=== PATIENT | male | born 1970 | race Caucasian/White ===

== ENCOUNTER 2023-09-29 17:06 | Inpatient (IN) | payer OTHER ==
[2023-09-29] VITALS (9 sets, daily range): BP systolic 82–101; BP diastolic 57–75
[~2023-09-29] VITALS: Ht 182.9 cm; Wt 77.7 kg
[~2023-09-29 17:06] MED LIST: AMLODIPINE BESY10 MG PO; BAYER BACK & B1 EACH; CLONAZEPAM1 MG PO; CLONAZEPAM2 MG; COMBIVENT RESPIM4 GM INH; DIPHENHYDRAMINE25 MG; LISINOPRIL40 MG PO; MULTI VITAMIN1 EACH PO; TAMSULOSIN HCL0.4 MG PO; TOPROL XL50 MG PO
[2023-09-29 17:39] LABS: BASOPHILS 2.1 % (0-2); EOSINOPHILS 0.3 % (0-6); HEMATOCRIT 37.3 % (35.0-50.0); LYMPHOCYTES 25.5 % (24-44); MCH 36.7 (27-36); MCHC 34.7 g/dl (30-36); MCV 105.8 fl (81-99); MONOCYTES 7.3 % (0-12); NEUTROPHILS 64.8 % (39-80); PLATELET COUNT 164 K/uL (140-440); RBC 3.52 M/ul (4.3-5.7); RDW 13.3 (10.5-15.0)
[2023-09-29] MEDS ORDERED: SODIUM CHLORIDE 0.9% 1,000 ML IV PRN (17:45)
[2023-09-29 17:50] LABS: ALBUMIN 3.1 g/dL (3.4-5.0); ALBUMIN/GLOBULIN RATIO 1.07 (1.1-2.4); ANION GAP 18.6 (7-21); BILIRUBIN, TOTAL 1.9 ng/dL (0.2-1.0); BUN/CREATININE RATIO 7.69 (6.0-28.6); CALCIUM 6.8 mg/dL (8.5-10.1); CREATININE, SERUM 1.82 mg/dL (0.70-1.30); POTASSIUM 2.6 mmol/L (3.5-5.1)
[2023-09-29] MEDS ORDERED: POTASSIUM CHLORIDE 10 MEQ/100 ML BAG IV SCH (18:15)
[2023-09-29] MEDS ORDERED: SODIUM CHLORIDE 0.9% 500 ML IV PRN (18:15)
[2023-09-29 18:32] LABS: BILIRUBIN, URINE POSITIVE (negative); BLOOD/HGB, URINE NEGATIVE (Negative); KETONE, URINE TRACE (Negative); LEUK ESTERASE, URINE NEGATIVE (negative); NITRITE, URINE NEGATIVE (negative)
[2023-09-29 18:47] LABS: AMPHETAMINES, URINE NEGATIVE (NEGATIVE); BARBITURATES, URINE NEGATIVE (NEGATIVE); BENZODIAZEPINE, URINE POSITIVE (NEGATIVE); BUPRENORPHINE, URINE NEGATIVE (NEGATIVE); CANNABINOID, URINE NEGATIVE (NEGATIVE); COCAINE, URINE POSITIVE (NEGATIVE); ECSTASY, URINE NEGATIVE (NEGATIVE); FENTANYL, URINE NEGATIVE (NEGATIVE); METHADONE, URINE NEGATIVE (NEGATIVE); OPIATES, URINE NEGATIVE (NEGATIVE); OXYCODONE, URINE NEGATIVE (NEGATIVE); PHENCYCLIDINE, URINE NEGATIVE (NEGATIVE)
[2023-09-29] MEDS ORDERED: ACETAMINOPHEN 325 MG TAB PO PRN (21:00)
[2023-09-29] MEDS ORDERED: CIPROFLOXACIN/D5W 400 MG IV SCH (21:00)
[2023-09-29] MEDS ORDERED: LORazepam 2 MG/ML VIAL IV PRN (21:00)
[2023-09-29] MEDS ORDERED: LACTATED RINGER'S 1,000 ML IV SCH ×2 (21:00)
[2023-09-29] MEDS ORDERED: ondansetron HCL 4 MG/2 ML VIAL IV PRN (21:00)
--- NOTE | 2023-09-29 21:00 | NUR ---
PATIENT ARRIVED TO THE UNIT VIA STRETCHER. PATIENT ABLE TO TRANSFER WITH SBA TO THE BED. PATIENT IS ALERT BUT TIRED. PATIENT VS STABLE. TOLERATING 2L NC. ORIENTED X4. IN TO SEE PATIENT. NEW ORDERS RECEIVED TO START BANANA BAG TONIGHT AND ABX ADDED. PATIENT IS APPROPRIATE AND FOLLOWS INSTRUCTION. RIGHT HAND HAS WOUND FROM "CAT BITE" ABOUT 3 WEEKS AGO ACCORDING TO THE PATIENT. PICTURES TAKEN FOR THE CHART AND DRESSED WITH XEROFORM AND KERLEX. AREA IS RED AND PAINFUL. BLADDER SCAN DONE DUE TO NOT VOIDING FOR UNKNOWN AMOUNT OF TIME. BLADDER SCAN FOR 300 MLS. PATIENT DENIED NEED TO VOID AT THIS TIME.
[2023-09-29] MEDS ORDERED: THIAMINE HCL 200 MG/2 ML VIAL ONE (21:14)
[2023-09-29] MEDS ORDERED: MULTIVITAMINS 10 ML,FOLIC ACID 1 MG,THIAMINE HCL 100 MG in SODIUM CHLORIDE 0.9% 1,000 ML IV SCH (21:15)
--- NOTE | 2023-09-29 21:36 | NUR ---
CRITICAL LAB VALUE CALLED TO . ORDERS RECEIVED FOR MAG REPLACEMENT, SEE EMAR. LAB RECHECK 1 HOUR AFTER INFUSION FINISHES.
[2023-09-29] MEDS ORDERED: MAGNESIUM SULFATE 4 GM/100 ML BAG IV ONE (21:45)
--- NOTE | 2023-09-29 22:00 | NUR ---
PATIENT PROVIDED PRN ATIVAN PER [facility] PROTOCOL. MOST NATABLE SYMPTOMS BEING TREMORS AND ANXIETY.
[2023-09-29 22:20] LABS: PH, VENOUS 7.502 (7.31-7.41)
[2023-09-30] VITALS (21 sets, daily range): BP systolic 88–153; BP diastolic 64–105
--- NOTE | 2023-09-30 00:15 | NUR ---
PATIENT APPEARS TO BE SLEEPING SOUNDLY. VS STABLE. IV FLUIDS PER ORDER, SITES WNL. CALL LIGHT IN REACH. BED ALARM ACTIVE.
--- NOTE | 2023-09-30 01:30 | NUR ---
PATIENT PROVIDED FRESH ICE WATER. ORIENTED AND FOLLOWS INSTRUCTIONS. DENIES NEED TO VOID. CALL LIGHT IN REACH.
--- NOTE | 2023-09-30 03:00 | NUR ---
PATIENT APPEARS COMFORTABLE RESTING IN BED. IV SITE WNL, IFV PER ORDER. VS STABLE. PATIENT TOLERATING 2L NC. CALL LIGHT IN REACH.
--- NOTE | 2023-09-30 04:54 | NUR ---
PATIENT UP TO THE EDGE OF THE BED. PATIENT MOVES SLOW AND HAS TREMORS BUT IS ABLE TO STAND AND USE URNAL WITH MINIMAL ASSIST. PATIENT VOIDED 200 MLS AJ COLORED URINE. PATIENT RETURNED TO BED. SNACKS AND WATER PROVIDED PER REQUEST. PRN ATIVAN PER CIWA PROTOCOL. PATIENT DENIED PAIN OR SOB. NOTED 85% ON RA, PLACED BACK ON 2L NC. TITRATED TO 4L AFTER ACTIVITY. LUNG SOUNDS ARE COARSE WITH FINE CRACKLES NOTED ON RLL. ENCOURAGED COUGH AND DEEP BREATHING FOR THE PATIENT. TITRATED BACK TO 2L AFTER SEVERAL MINS. PATIENT IS ALERT AND FOLLOWS INSTRUCTIONS BUT IS SLOW TO RESPOND. CALL LIGHT IN REACH. BED ALARM ON.
[2023-09-30 05:20] LABS: BASOPHILS 1.3 % (0-2); EOSINOPHILS 1.1 % (0-6); HEMOGLOBIN 12.3 g/dL (12.0-18.0); MCH 37.1 (27-36); MCHC 35.1 g/dl (30-36); MCV 105.7 fl (81-99); NEUTROPHILS 61.6 % (39-80); PLATELET COUNT 137 K/uL (140-440); RBC 3.31 M/ul (4.3-5.7); RDW 12.8 (10.5-15.0)
[2023-09-30 05:34] LABS: ALBUMIN 2.7 g/dL (3.4-5.0); ALBUMIN/GLOBULIN RATIO 0.93 (1.1-2.4); ANION GAP 17.9 (7-21); BUN/CREATININE RATIO 10.3 (6.0-28.6); CREATININE, SERUM 0.97 mg/dL (0.70-1.30); MAGNESIUM 1.4 mg/dL (1.8-2.4); POTASSIUM 2.9 mmol/L (3.5-5.1); PROTEIN, TOTAL 5.6 g/dL (6.4-8.2)
[2023-09-30 05:35] LABS: CALCIUM 6.2 mg/dL (8.5-10.1)
--- NOTE | 2023-09-30 05:57 | NUR ---
NOTED PATIENT GLUCOSE 70 ON LABS. PATIENT RECEIVED SNACK AND JUICE.
--- NOTE | 2023-09-30 06:34 | NUR ---
UPDATED PROVIDED TO SEE EMAR FOR NEW ORDERS.
[2023-09-30] MEDS ORDERED: MAGNESIUM SULFATE 3 GM in SODIUM CHLORIDE 0.9% 100 ML IV ONE (06:45)
[2023-09-30] MEDS ORDERED: LACTATED RINGER'S 1,000 ML IV ONE (06:45)
[2023-09-30] MEDS ORDERED: POTASSIUM CHLORIDE 40 MEQ,LIDOCAINE HCL 1% 40 MG in DEXTROSE 5% 500 ML IV ONE (06:45)
[2023-09-30] MEDS ORDERED: CALCIUM GLUCONATE 2,000 MG in DEXTROSE 5% 100 ML IV ONE ×2 (06:45→17:15)
[2023-09-30] MEDS ORDERED: POTASSIUM CHLORIDE 10 MEQ TABCR PO ONE ×3 (08:00→23:00)
--- NOTE | 2023-09-30 08:19 | NUR ---
UR CLINICAL REVIEW: [facility] [place] JULIOCO OBS 09/29/23 @ 2000 MEETS YES PLAN DC TO HOME WHEN STABLE. 09/30/23 OBSERVATION CARE ADMISSION CRITERIA FOR DEHYDRATION: VITAL SIGN ABNORMALITY- BLOOD PRESSURES 76-89/47-64, BP MEAN 59-73. ELECTROLYTE IMBALANCES- POTASSIUM 2.5 AND MAGNESIUM 0.8 INABILITY TO MAINTAIN ORAL HYDRATION- INTOXTICATED ON ADMISSION, ELEVATED LACTIC ACIDS
--- NOTE | 2023-09-30 08:55 | NUR ---
PATIENT ASSESSMENT COMPLETED. PATIENT HAS BEEN RESTING AT THIS TIME. PATIENT SHAKY PER BASELINE PER PATIENT. WILL MONITOR FOR INCREASED CIWA. PATIENT BREAKFAST PROVIDED AND PATIENT ABLE TO FEED HIMSELF AT THIS TIME.
[2023-09-30] MEDS ORDERED: MULTIVITAMINS 10 ML,FOLIC ACID 1 MG,THIAMINE HCL 100 MG in SODIUM CHLORIDE 0.9% 1,000 ML IV SCH (09:00)
[2023-09-30] MEDS ORDERED: PANTOPRAZOLE SODIUM 40 MG TABEC PO SCH (09:00)
--- NOTE | 2023-09-30 09:12 | NUR ---
MD PENDLETON AT BEDSIDE AND UPDATED THAT PATIENT DENIES BEER WITH MEALS. PATIENT STATES "I DONT LIKE BEER". PATIENT STATES "BEAU USED LIBRIUM TO HELP WITH WITHDRAWLS IN THE PAST AND THEN GO STRAIGHT BACK TO DRINKING". PATIENT DENIES WANTING TO STOP DRINKING OR SMOKING. SEE NEW ORDERS PER MD PENDLETON.
[2023-09-30] MEDS ORDERED: chlordiazePOXIDE HCl 5 MG CAPSULE PO SCH ×2 (09:23→15:00)
[2023-09-30] MEDS ORDERED: TAMSULOSIN HCL 0.4 MG CAP PO SCH (09:24)
--- NOTE | 2023-09-30 09:35 | NUR ---
PATIENT ALERT AND ORIENTED IN BED. DEMOGRAPHICS VERIFIED WITH PATIENT. STATES HE LIVES IN A HOUSE WITH STAIRS, NO DIFFICULTY NAVIGATING STAIRS. STATES HE HAS NO DME. PATIENT CONTINUES TO DRIVE. HE RECEIVES FOOD STAMPS. STATES HE IS CURRENTLY UNEMPLOYED AND PAYING FOR UTILITES, FOOD AND MEDICATIONS IS BECOMING MORE DIFFICULT. PAMPHELET WITH INFORMATION REGARDING [employer], FOOD PANTRIES GIVEN. PATIENT STATES HE HAS TRIED TO STOP DRINKING MULTIPLE TIMES IN THE BUT WAS UNSUCCESSFUL. OFFERED TO CALL [facility] TO GET HIM SET UP WITH SUPPORT. STATES THAT WOULD BE OK, BUT HE DOES NOT WANT THEM TO SEE HIM IN THE HOSPITAL. SPOKE WITH JAMAL AT [facility]. PATIENT INFORMATION PROVIDED. STATES SHE WILL ATTEMPT TO CALL HIM THIS EVENING.
--- NOTE | 2023-09-30 09:57 | NUR ---
VISITED DURING SPIRITUAL CARE ROUNDS. PT APPEARED TO BE SLEEPING. DID NOT DISTURB. PROVIDED PRAYER.
--- NOTE | 2023-09-30 11:10 | NUR ---
ATIVAN GIVEN FOR INCREASED CIWA OF 12. PATIENT HAS BEEN UP TO THE BEDSIDE TO VOID MULTIPLE TIMES. PATIENT IS VERY SHAKY WHEN STANDING AND NEEDS 1 PERSON ASSIST FOR BALANCE. PATIENT BED ALARM ON FOR SAFETY. PATIENT HAS NOT BEEN CALLING AND SETS ALARM OFF. REEDUCATED PATIENT TO PLEASE CALL BEFORE GETTING UP.
--- NOTE | 2023-09-30 11:54 | NUR ---
PATIENT AWAKE AND ASSSITED WITH A PUDDING. PATIENT REPORTS ATIVAN SEEMS TO HAVE HELPED A LITTLE. PATIENT AWAITING LUNCH. PATIENT REPORTS FEELING COLD AND IS SHAKY. NO TEMP NOTED AT THIS TIME 98.1 ORAL. TYLENOL GIVEN FOR PAIN 6/10 IN HIS HAND AND GENERALIZED DISCOMFORT. PATIENT DENIES ANY OTHER NEEDS AT THIS TIME. BED ALARM ON FOR PATIENT SAFETY.
[2023-09-30] MEDS ORDERED: PHARMACY RENAL DOSE ADJUSTMENT 1 DOSE MISC PO SCH (12:00)
[2023-09-30] MEDS ORDERED: METOPROLOL SUC100 MG PO (13:01)
[2023-09-30] MEDS ORDERED: METOPROLOL SUCC50 MG PO (13:01)
[2023-09-30] MEDS ORDERED: ZESTRIL40 MG PO (13:02)
[2023-09-30] MEDS ORDERED: FLOMAX0.4 MG PO (13:03)
[2023-09-30] MEDS ORDERED: NORVASC10 MG PO (13:03)
--- NOTE | 2023-09-30 13:04 | NUR ---
MED REC COMPLETE - PT STATES HAS NOT TAKEN MEDS FOR SOME TIME, BUT SHOULD BE.
--- NOTE | 2023-09-30 13:10 | NUR ---
PATIENT UP AT THE BEDSIDE TO VOID WITH RN ASSSIT AFTER PATIENT SET OFF BED ALARM. PATIENT HAS INCREASED SHAKING AND INSTABILITY WITH SHAKING. PRN DOSE OF ATIVAN GIVEN. BED ALARM BACK ON AND PATIENT EATING DINNER AT THIS TIME
--- NOTE | 2023-09-30 14:30 | NUR ---
STAFF IN TO ASSIST PATIENT AND PRN ATIVAN WAS GIVEN FOR INCREASED CIWA.
--- NOTE | 2023-09-30 15:00 | NUR ---
UPDATED MD OF CONTINUED INCREASED CIWAS AND ATIVAN ADMINISTRATION. PER MD PERFECTO STEWART AND MONITOR FOR CHANGES. PATIENT REPORTS SEEING A CAT IN HIS ROOM AND STATES "I KNOW ITS NOT HERE THOUGH".
--- NOTE | 2023-09-30 15:11 | NUR ---
bisque kiln drawer was able to assist pt with using his urinal laying down in the bed. bisque kiln drawer held urinal and assisted pt with putting his penis into the urinal. output charted
[2023-09-30 15:18] LABS: ANION GAP 14.4 (7-21); BUN/CREATININE RATIO 5.43 (6.0-28.6); CALCIUM 6.8 mg/dL (8.5-10.1); CREATININE, SERUM 0.92 mg/dL (0.70-1.30); POTASSIUM 3.4 mmol/L (3.5-5.1)
--- NOTE | 2023-09-30 15:51 | NUR ---
PATIENT TRYING TO SIT UP IN BED. THIS RN IN TO CHECK ON PATIENT. PATIENT USED URINAL IN BED WITH NO ISSUES. PATIENT NOW LAYING BACK RESTING IN BED. BED ALARM ON. FALL MATS IN PLACE.
--- NOTE | 2023-09-30 16:30 | NUR ---
THIS RN IN TO ASSSIT PATIENT WITH URINAL. PATIENT TOLERATED WELL. BED ALARM ON FOR PATIENT SAFETY.
[2023-09-30] MEDS ORDERED: MAGNESIUM SULFATE 4 GM/100 ML BAG IV ONE ×2 (17:15→23:00)
--- NOTE | 2023-09-30 18:46 | NUR ---
PATIENT SITTING UP IN BED FOR DINNER. MD HERE TO CHECK ON PATIENT. LABS REVIEWED AND NEW ORDERS PLACED. MD LOOKED AT PATIENTS HAND. CLEANED AND REDRESSED PATIENT HAND WITH A FOAM DRESSING. PATIENT TOELRATED WELL. PATIENT REPORTING CONTINUED WITHDRAWL SYMPTOMS. PATIENT STATES HE IS NOW STARTING TO HEAR/SEE THINGS. PATIENT ALERT TO SELF AND EASILY REORIENTABLE. PATIENT IS LESS ANXIOUS, AGITATED, AND SHAKY THAN EARLIER IN SHIFT. PATIENT UPDATED ON PLAN OF CARE. PATIENT BED ALARM ON. PATIENT USED HIS CALL LIGHT FOR THE FIRST TIME THIS EVENING TO ASK FOR ASSISTANCE.
[2023-09-30] MEDS ORDERED: diphenhydrAMINE HCL 50 MG/ML VIAL IV PRN (19:30)
--- NOTE | 2023-09-30 19:40 | NUR ---
PATIENT RESTING IN BED, ALERT AND ORIENTED, HE REPORTS NO PAIN, HE SAID "I JUST FEEL LIKE CRAP" PATIENT HAS MAG RIDER AND CA RIDER INFUSIONG AT THIS TIME. HE HAS NO TREMORS NOTED AT REST, HE IS NOT SWEATING OR REPORTING ANY HALLUCINATIONS AT THIS TIME. CIWA 4
--- NOTE | 2023-09-30 21:07 | NUR ---
AT NURSES STATION AFTER ROUNDING ON PATIENT, GAVE ORDERS TO PLACE REPEAT LABS AT 2200 FOR REVIEW AFTER ELECTROLYTE REPLACEMENT AND ALSO AM LABS.
--- NOTE | 2023-09-30 22:17 | NUR ---
LAB INTO DRAW LABS NOW
--- NOTE | 2023-09-30 22:23 | NUR ---
PATIENT ADMINISTERED 25MG IV BENEDRYL FOR TREMORS PER VERBAL ORDER AT NURSES STATION.
[2023-09-30 22:38] LABS: ANION GAP 11.3 (7-21); BUN/CREATININE RATIO 5.37 (6.0-28.6); CALCIUM 7.2 mg/dL (8.5-10.1); CREATININE, SERUM 0.93 mg/dL (0.70-1.30); MAGNESIUM 1.8 mg/dL (1.8-2.4); POTASSIUM 3.3 mmol/L (3.5-5.1)
--- NOTE | 2023-09-30 22:49 | NUR ---
PATIENT ATTEMPTING TO SIT UP TO SIDE OF BED, THIS RN INTO ROOM WHEN NOTICED HEART RATE INCREASE TO 120, NOT SUSTAINED, PATIENT SAID HE WAS TRYING TO SIT TO SIDE OF BED, HE WAS UNABLE TO WITHOUT ASSISTANCE, TWO RN TO ASSIST PATIENT TO SIT, THEN ONE TO DO HALF STAND WHILE DEPENDS CHANGED AND WHITE CHUCKS ON BED CHANGED. PATIENT BACK TO BED NOTED TO BE MORE TREMULOUS ONCE BACK TO BED, HE REPORTS HE IS DISAPPOINTED WITH HIMSELF, THAT HE CANT DO ANYTHING FOR HIMSELF. DISCUSSED DISEASE PROCESS WITH PATIENT AND SYMPTOMS.
[2023-09-30] MEDS ORDERED: AMLODIPINE BESYLATE 5 MG TAB PO ONE (23:00)
[2023-09-30] MEDS ORDERED: Calcium Gluconate in NS 1,000 MG/50 ML BAG IV ONE (23:00)
--- NOTE | 2023-09-30 23:00 | NUR ---
CALLED WITH 2200 LAB RESULTS AND INCREASE B/P, NEW ORDERS FOR ELECTROLYTE REPLACEMENT AND B/P MEDICATIONS.
[2023-09-30] MEDS ORDERED: MAGNESIUM SULFATE IV ONE (23:15)
--- NOTE | 2023-09-30 23:40 | NUR ---
PATIENT SET OFF BED ALARM, LEGS TO EDGE OF BED, THIS RN INTO PATIENT ROOM, PATIENT SAID "I WANT TO GET UP AND WALK TO THAT WALL OVER THERE" HE IS POINTING TO TV WALL. THIS RN SAID "I DONT THINK THATS A GOOD IDEA FOR TONIGHT, YOU ARE STILL VERY WEAK, YOU HAVE BEEN NEEDING TWO PEOPLE TO ASSIST YOU TO SIT AT THE SIDE OF BED AND SUPPORT YOU TO USE THE URINAL" PATIENT SAID, "THEN WHEN" NOTED TO BE AGITATED WITH THIS, THIS RN SAID, "MAYBE IN THE MORNING IF YOU FEEL LIKE GETTING UP TO RECLINER, WE CAN TRY THAT" HE DID NOT RESPOND. HE JUST SAT BACK IN BED AND NARROWED HIS EYES, LIKE A GLARE, STRAIGHT FORWARD.
--- NOTE | 2023-09-30 23:50 | NUR ---
PATIENT RESTING IN BED, EYES CLOSED, HE WAKES EASILY, NOTED CONTINUED HAND TREMORS WHILE AT REST. ATIVAN 2MG IV PRN
[2023-10-01] VITALS (27 sets, daily range): BP systolic 100–152; BP diastolic 69–112
--- NOTE | 2023-10-01 01:09 | NUR ---
PATIENT SET OFF BED ALARM, RN X2 INTO PATIENT ROOM TO ASSIST TO SIT TO BED, PATIENT HAS BEEN INCONTINENT IN BRIEF DEPENDS, VOIDED IN URINAL THEN CHANGED/CLEANED AND CHANGED WHITE CHUCKS FROM BED. PATIENT THEN ASSISTED BACK TO BED AND BOOSTED UP.
--- NOTE | 2023-10-01 03:08 | NUR ---
PATIENT SET OFF BED ALARM, HE REPORTS HE NEED TO "PEE" THIS RN AND Nathalia GALAVIZ IN ROOM TO ASSIST, PATIENT TO SIT AT SIDE OF BED AND VOID IN URINAL, HE VOIDED 300ML, HE ASSISTED WITH LEGS TO BOOST SELF UP IN BED WITH ASSISTANCE.
--- NOTE | 2023-10-01 03:42 | NUR ---
PATIENT NOTED TO BE TALKING TO SOMEONE IN ROOM IF ON THE TELEPHONE, THIS RN COULD HERE HIME SAY, "I JUST GOT OUT OF THE HOSPITAL YESTURDAY, ARE YOU THERE?, HELLO?" THIS RN INTO PATIENTS ROOM TO ASSESS, HE IS NOTED TO HAVE AUDITORY HALLUCINATIONS, HE REORIENTED EASILY, THEN HE SAID HE NEEDED TO VOID, PATIENT VOIDED 450ML OF URINE IN URINAL WITH ASSISTANCE, HE THEN BEGAN LOOKING FOR "CAP FROM NEOSPORIN" THIS RN SAID, "SIR, YOU ARE IN THE HOSPITAL YOU DONT HAVE ANY NEOSPORIN IN YOUR BED." HE SAID, "OH, THATS RIGHT, DAMN, I AM HALLUCINATING LIKE A MOTHER FUCKER." THIS RN SAID, "YES SIR, I JUST GAVE YOU SOME MORE MEDICINE IN YOUR IV, THE ATIVAN TO HELP WITH THIS." HE SAID, "OK". HE HAS NO FURTHER NEEDS OR CONCERNS AT THIS TIME.
--- NOTE | 2023-10-01 04:45 | NUR ---
PATIENT SET BED ALARM OFF, HE SAID HE HAD TO "PEE", PATIENT ASSISTED TO BEDSIDE WITH URINAL, TWO NURSE ASSIST, PATIENT THEN NOTED TO HAVE HAD INCONTINENCE IN DEPENDS AND IN BED. PATIENT ASSISTED TO RECLINER FOR FULL BED CHANGE, CLEANED PATIENT AND CHANGED DEPENDS. PATIENT SAID MULTIPLE TIMES, "I WANT TO GO OUTSIDE TO HAVE A CIGARETTE." THIS RN RE-ORIENTED PATIENT TO PLACE AND RULES OF NO SMOKING ON HOSPITAL PROPERTY, PATIENT OFFERED NICOTINE REPLACEMENT, PATCH, GUM, LOZENGES. HE DECLINED ALL REPLACEMENT. PATIENT BACK TO BED AFTER BED LINENS CHANGED.
--- NOTE | 2023-10-01 05:11 | NUR ---
LAB DRAW FROM LEFT AC BY THIS RN, WITH COMMISSIONING AGENT IN ROOM. PATIENT TOLERATED WELL.
[2023-10-01 05:46] LABS: ALBUMIN 2.8 g/dL (3.4-5.0); ANION GAP 10.6 (7-21); BILIRUBIN, TOTAL 2.7 ng/dL (0.2-1.0); BUN/CREATININE RATIO 5.19 (6.0-28.6); CALCIUM 7.2 mg/dL (8.5-10.1); CREATININE, SERUM 0.77 mg/dL (0.70-1.30); MAGNESIUM 1.2 mg/dL (1.8-2.4); POTASSIUM 3.6 mmol/L (3.5-5.1); PROTEIN, TOTAL 5.6 g/dL (6.4-8.2)
[2023-10-01 05:53] LABS: BASOPHILS 0.8 % (0-2); EOSINOPHILS 0.7 % (0-6); HEMATOCRIT 34.9 % (35.0-50.0); HEMOGLOBIN 12.4 g/dL (12.0-18.0); LYMPHOCYTES 22.6 % (24-44); MCH 37.4 (27-36); MCHC 35.4 g/dl (30-36); MCV 105.6 fl (81-99); MONOCYTES 5.2 % (0-12); NEUTROPHILS 70.7 % (39-80); PLATELET COUNT 107 K/uL (140-440); RBC 3.31 M/ul (4.3-5.7); RDW 12.9 (10.5-15.0)
--- NOTE | 2023-10-01 06:00 | NUR ---
CALLED TO REPORT AM LABS INCLUDING CRITICAL PHOS LAB 1.0, NEW ORDERS FOR REPLACEMENTS.
--- NOTE | 2023-10-01 06:32 | NUR ---
Lab called with critical value, Phos 1.0, reported to Barbara RED
[2023-10-01] MEDS ORDERED: MAGNESIUM SULFATE 2 GM/50 ML BAG IV ONE (06:45)
[2023-10-01] MEDS ORDERED: POTASSIUM PHOSPHATE 30 MMOL in DEXTROSE 5% 500 ML IV SCH ×2 (06:45→08:00)
--- NOTE | 2023-10-01 07:45 | NUR ---
REPORT RECIEVED FROM CHART COMPUTER RN. PATIENT RESTING IN BED. BED ALARM ON. PER REPORT PATIENT REMAINS WEAK AND FORGETFUL.
--- NOTE | 2023-10-01 07:52 | NUR ---
Patient up to chair for breakfast, after using urinal. Pt voided 300. am care completed, pt has no other requests at this time. Warm blankets given, linens changed. Pt has no other requests at this time, chair alarm on. Call light within reach.
[2023-10-01] MEDS ORDERED: METOPROLOL TARTRATE 5 MG/5 ML VIAL IV ONE (08:45)
[2023-10-01] MEDS ORDERED: METOPROLOL SUCCINATE 50 MG TABCR PO SCH (09:00)
[2023-10-01] MEDS ORDERED: MULTIVITAMINS THERAPEUTIC 1 EA TAB PO SCH (09:00)
[2023-10-01] MEDS ORDERED: AMLODIPINE BESYLATE 10 MG TAB PO SCH (09:00)
[2023-10-01] MEDS ORDERED: THIAMINE HCL 100 MG TAB PO SCH (09:00)
[2023-10-01] MEDS ORDERED: FOLIC ACID 1 MG TAB PO SCH (09:00)
--- NOTE | 2023-10-01 09:00 | NUR ---
PATIENT ASSESSMENT COMPLETED. PATIENT ALERT AND ORIENTED TO SELF AND EVENTS. PATIENT IS FORGETFUL TO SOME EVENTS. PATIENT CIWA IS 6-8. PATIENT REPORTS BEING IN THE HOSPITAL BECAUSE OF HIS HAND AND ALCOHOL WITHDRAWL. PATIENT FOLLOWS COMMANDS WHILE STAFF ARE AT THE BEDSIDE, BUT IS VERY IMPULSE AND CONTINUES TO TRY TO STAND ON HIS OWN. PATIENT DOES NOT CALL USE THE CALL LIGHT FOR HELP. THIS RN AND FACSIMILE MACHINE OPERATOR ASSSITED PATIENT TO CHAIR AND PATIENT ABLE TO STAND BETTER THAN YESTERDAY EVENING. PATIENT REMAINS WEAK. PT/OT WILL SEE PATIENT TODAY.
--- NOTE | 2023-10-01 09:31 | NUR ---
Patient back to bed, 2pa. Ice water given, bed alarm on, and fall mat down. Pt has no other requests at this time. Call light within reach.
--- NOTE | 2023-10-01 10:14 | NUR ---
Patient moving around in bed, when approached, pt stated he needed to use the urinal. This SCALER assisted,pt voided 450. Bed alarm on, call light within reach.
--- NOTE | 2023-10-01 10:15 | NUR ---
PATIENT BACK TO BED AND TOELRATED WELL. PATIENT CONTINUES TO HAVE URGENCY AND INCONTINENCE AT TIMES WITH URINATION. PATIENT ALERT TO SITUATION AND PERSON BUT IS FORGETFUL AND IMPULSIVE.
--- NOTE | 2023-10-01 11:58 | NUR ---
PATIENT UP IN THE CHAIR AT THIS TIME EATING LUNCH. PATIENT REMAINS FORGETFUL AND IMPULSIVE.
--- NOTE | 2023-10-01 14:00 | NUR ---
CONFIRMED WITH MD PENDLETON TO HOLD METOPROLOL PO THIS AM AND GIVE IV INSTEAD AND MONITOR FOR CHANGES. SOME IMPROVEMENT NOTED WITH IV METOPROLOL. PER MD CAN GIVE PO NOW AT THIS TIME. PATIENTS HR 110-120 WITH ACTIVITY AND BP 130'S SYSTOLIC.
[2023-10-01] MEDS ORDERED: chlordiazePOXIDE HCl 5 MG CAPSULE PO SCH ×2 (14:16→14:30)
--- NOTE | 2023-10-01 14:16 | NUR ---
SPOKE WITH MD PENDLETON. NEW ORDERS FOR PRECEDEX GTT IF NEEDED AND INCREASE SCHEDULED LIBRIUM FOR IMPROVED CIWA CONTROL. PATIENT IS MORE CONFUSED THIS AFTERNOON AND HAS INCREASED TREMULOUSNESS. PATIENT IS HALLUCINATING. PATIENT IS REDIRECTABL AT TIMES. PATIENT CURRENTLY RESTING IN BED WITH BED ALARM ON FOR SAFETY.
[2023-10-01] MEDS ORDERED: NICOTINE 21 MG/24 HR 1 EA TDSY TD SCH (14:55)
--- NOTE | 2023-10-01 16:36 | NUR ---
PATIENT PULLED IV SITE IN RIGHT AC. PT CONTINUES TO ESCALATE WITH HIS ETOH W/D. NEW IV STARTED IN RIGHT FOREARM AND IV PRECEDEX STARTED AT 0.2 MCG/KG/HR. WILL TITRATE UP NEEDED.
[2023-10-01 16:48] LABS: ALBUMIN 3.2 g/dL (3.4-5.0); ALBUMIN/GLOBULIN RATIO 0.97 (1.1-2.4); ANION GAP 12.7 (7-21); BILIRUBIN, TOTAL 2.2 ng/dL (0.2-1.0); BUN/CREATININE RATIO 1.2 (6.0-28.6); CALCIUM 7.6 mg/dL (8.5-10.1); CREATININE, SERUM 0.83 mg/dL (0.70-1.30); POTASSIUM 3.7 mmol/L (3.5-5.1); PROTEIN, TOTAL 6.5 g/dL (6.4-8.2)
--- NOTE | 2023-10-01 17:22 | NUR ---
THIS RN SITTING IN WITH PATIENT D/T INCREASED AGITATION/RESTLESSNESS. PATIENT CONSTANTLY PULLING AND THINGS AND TRYING TO GET UP. PATIENT HALLUCINATING ANDN SEEING PEOPLE. PATIENT STATES "IM GOING TO THE STORE TO GET MY 1/2 GALLON". PRN MEDICATION GIVEN NEEDED FOR CIWA >8 PER ORDERS.
[2023-10-01] MEDS ORDERED: MAGNESIUM SULFATE 4 GM/100 ML BAG IV ONE (17:30)
--- NOTE | 2023-10-01 18:55 | NUR ---
PATIENT REMAINS RESTLESS AND AGITATED THIS EVENING. PATIENT CONTINUES TO ATTEMPT TO GET OUT OF BED. PATIENT PULLING ON TUBES/WIRES. PATIENT GIVEN 3MG ATIVAN FOR INCREASED CIWA. PATIENT BED ALARM ON FOR SAFETY. PATIENT FINISHED DINNER BUT STILL DRINKING HIS SPRITE AT THIS TIME.
--- NOTE | 2023-10-01 20:53 | NUR ---
HELD LIBRIUM FOR NOW, PATIENT DROWSY, HE WILL OPEN EYES AND TAKE SIP OF WATER, THEN BACK TO SLEEP, TITRATED DOWN PRECEDEX DRIP TO 0.7, MAY BE ABLE TO GIVE LIBRIUM LATER WHEN PATIENT MORE ALERT.
--- NOTE | 2023-10-01 21:48 | NUR ---
PATIENT ALERT TO NAME, OPENS EYES, NO DISTRESS NOTED AT THIS TIME CIWA 2
--- NOTE | 2023-10-01 22:12 | EKG ---
[facility] [address] [place] [address] Signed Normal sinus rhythm Left ventricular hypertrophy with QRS widening and repolarization abnormality ( Sokolow-Celis ) Abnormal ECG When compared with ECG of 09-APR-2023 14:10, ST no longer elevated in Anterior leads QT has lengthened Confirmed by APRIL PENDLETON MD ([id number]) on 10/01/2023 10:12:09 PM Electronically Signed By: APRIL PENDLETON 10/01/23 2212 PATIENT NAME: AILYN MIRANDA Electrocardiogram DATE OF : 72 PHYSICIAN: APRIL PENDLETON REPORT #: [id number] REPORT IS CONFIDENTIAL AND NOT TO BE RELEASED WITHOUT AUTHORIZATION
--- NOTE | 2023-10-01 23:08 | NUR ---
PATIENT REPOSITIONED, OPENS EYES AND MOVES LEGS WITH CARE, THEN BACK TO SLEEP. CIWA 2. V/S STABLE ON MONITOR.
[2023-10-02] VITALS (21 sets, daily range): BP systolic 105–156; BP diastolic 80–107
--- NOTE | 2023-10-02 00:59 | NUR ---
PATIENT RESTING QUIETLY IN BED OPENS EYES TO VOICE AND TOUCH, NO DISTRESS NOTED. V/S STABLE PER MONITOR, PATIENT NOTED TO BE SNORING. OXYGEN SATURATION 94% ON ROOM AIR.
--- NOTE | 2023-10-02 03:32 | NUR ---
PATIENT ALERT TO RN TALKING TO HIM, HE STARTED FIGITING AND BECAME RESTLESS, HALLUCINATING, ATIVAN PRN ADMINISTERED. PATIETN REMAINS ALERT SITTING UP IN BED
--- NOTE | 2023-10-02 03:52 | NUR ---
PATIENT ATTEMPTING TO CLIMB OUT OF BED, AGITATED, IRRITATED, HE SAID HE IS GOING TO GO HOME, REORIENTED TO PATIENT TO PLACE AND SITUATION. HE CONTINUES TO WANT TO GO HOME EVEN IF HE HAS TO WALK, HE DOES NOT REMEBER THIS RN FROM TUESDAY NIGHTSHIFT, 1:1 AT THIS TIME.
--- NOTE | 2023-10-02 05:31 | NUR ---
PATIENT KICKING LEGS IN AIR, RESTLESS, FOLLOWING DIRECTIONS, ATIVAN PRN GIVEN
[2023-10-02 06:14] LABS: BASOPHILS 0.8 % (0-2); EOSINOPHILS 2.3 % (0-6); HEMATOCRIT 37.4 % (35.0-50.0); MCH 37.1 (27-36); MCHC 34.8 g/dl (30-36); MCV 106.6 fl (81-99); MONOCYTES 5.8 % (0-12); NEUTROPHILS 68.1 % (39-80); PLATELET COUNT 97 K/uL (140-440); RBC 3.51 M/ul (4.3-5.7); RDW 12.9 (10.5-15.0)
[2023-10-02 06:30] LABS: ALBUMIN/GLOBULIN RATIO 0.97 (1.1-2.4); ANION GAP 11.3 (7-21); BILIRUBIN, TOTAL 2.2 ng/dL (0.2-1.0); BUN/CREATININE RATIO 2.7 (6.0-28.6); CALCIUM 7.6 mg/dL (8.5-10.1); CREATININE, SERUM 0.74 mg/dL (0.70-1.30); MAGNESIUM 1.6 mg/dL (1.8-2.4); POTASSIUM 3.3 mmol/L (3.5-5.1); PROTEIN, TOTAL 6.1 g/dL (6.4-8.2)
--- NOTE | 2023-10-02 06:43 | NUR ---
NEW IV MED PROVIDED. RASS -2, AROUSABLE. CALL LIGHT IN REACH, RAILS UP, BED ALARM ON.
--- NOTE | 2023-10-02 08:27 | NUR ---
PATIENT WAKES UP AND IS TRYING TO GET OUT OF BED. PT ASKS, "WHERE AM I AND WHAT IS ALL THIS STUFF?" REORIENTED PATIENT TO ROOM, SITUATION, PLACE AND EVENT. PT STATES, "WHY IS IT EVERYTIME I WAKE UP THIS PLACE LOOKS DIFFERENT?" DISCUSSED WITH PATIENT REASONS FOR BEING IN HOSPITAL, PLAN OF CARE, AND SAFETY MEASURES TO KEEP HIM SAFE. BED ALARM REMAINS ON. PRECEDEX REMAINS INFUSING AT 0.7 MCG/KG/HR. HR 60-70s SINUS. BP AT 0800 130/102. PT STATES HE IS THIRSTY. PT THEN FALLS BACK ASLEEP WITHIN A COUPLE OF MINUTES. SP02 IS 94% CURRENTLY. AM MEDS TO BE GIVEN.
[2023-10-02] MEDS ORDERED: MAGNESIUM SULFATE 2 GM/50 ML BAG IV ONE ×2 (08:30→11:00)
[2023-10-02] MEDS ORDERED: POTASSIUM CHLORIDE 10 MEQ TABCR PO ONE ×2 (08:30→11:00)
--- NOTE | 2023-10-02 09:00 | NUR ---
PHYSICAL THERAPY IN ROOM TO WORK WITH PT. PT PRECEDEX DRIP TURNED TO 0.6 MCG/KG/HR. PT IS DROWSY, OPENS EYES TO VERBAL STIMULI. ABLE TO ANSWER QUESTIONS. PT UP TO EDGE OF BED, UNABLE TO HOLD HIMSELF UP. PRECEDEX DRIP TURNED TO 0.4 MCG/KG/HR. PT BACK TO LYING IN BED. CALL LIGHT WITHIN REACH, BED ALARMS ON.
--- NOTE | 2023-10-02 11:00 | NUR ---
PT AWAKENS TO VERBAL STIMULI. PT SAYS HE HAS NO HEADACHE OR PAIN AT THIS TIME. PT TV TURNED. PT HAS NO FURTHER NEEDS AT THIS TIME. CALL LIGHT WITHIN REACH, AND BED ALARMS ON.
--- NOTE | 2023-10-02 14:22 | NUR ---
PATIENT MORE AWAKE AT THIS TIME AND ASKING QUESTIONS ABOUT HIS GIRLFRIEND ANDREW. DISCUSSED WITH PATIENT THAT NO VISTORS HAVE BEEN IN TODAY OR YESTERDAY. PT ASKING THEN, "DID I MISS BREAKFAST?" PT'S LUNCH TRAY WARMED UP FOR HIM AND HELPED HIM TO SIT STRAIGHT UP, AND NOW FEEDING HIMSELF. 1400 DOSE OF LIBRIUM GIVEN. PT IS CALM, AND COOPERATIVE AT THIS TIME. WILL CONTINUE TO MONITOR.
--- NOTE | 2023-10-02 17:30 | NUR ---
PT ASSISTED UP RIGHT IN BED FOR DINNER. PT STATED HE WASNT VERY HUNGRY FOR DINNER SINCE HE HAD A LATE LUNCH. PT IS PLEASANT AND ALERT UPON ENTERING THE ROOM. PT STATES HE HAS NO NEEDS AT THIS TIME. CALL LIGHT WITHIN REACH.
--- NOTE | 2023-10-02 19:22 | NUR ---
PT USED CALL LIGHT. UPON ENTERING THE ROOM PT STATES HIS CONDOM CATH WAS GIVING HIM TROUBLE. CATH WAS FIXED, AND PT NOW REQUESTING SOME JUICE TO DRINK. PT HAS NO FURTHER NEEDS AT THIS TIME. CALL LIGHT WITHIN REACH AND BED ALARM ON.
--- NOTE | 2023-10-02 20:00 | NUR ---
PATIENT ALERT AND ORIENT, IN GOOD HUMOR, ASKED TO USE THE ROOM PHONE AND WAS ABLE TO REMEBER AND DIAL NUMBERS HIMSELF, HE IS FORGETFUL IN REGARDS TO CONDOM CATH NICK. HE IS COOPERATIVE WITH SAMIRA CHAVES 2. ASSESSMENT COMPLETE.
--- NOTE | 2023-10-02 23:18 | NUR ---
PATIENT ATE FULL LUNCH BOX, NO NAUSEA, HE REPORTS HE HAS A REOCCURENT PAIN AT LEFT LOWER QUADRANT, HE REPORT THIS IS CHRONIC THAT HE HAS BEEN DX WITH A HERNIA IN THE PAST. HE SAID THE PAIN IS POSITIONAL, AND NOW THAT HE HAS SAT BACK IT IS BETTER. HE IS ALERT AND ORIENTED, PLEASANT, AND COOPERATIVE WITH ALL CARES.
[2023-10-03] VITALS (10 sets, daily range): BP systolic 112–142; BP diastolic 84–101
--- NOTE | 2023-10-03 00:22 | NUR ---
PATIENT WOKE, SAID HE HAD A "CRAZY DREAM" HE ALSO SAID, "I AM GETTING UP AND GETTING OUT OF HERE, YOU CANT KEEP ME HERE" THIS RN SAID, "OK JUST GIVE ME A MINUTE TO UNHOOK SOME THINGS AND YOU CAN SEE IF YOU CAN STAND." PATIENT SAID, "YOU CANT KEEP ME HERE AGAINST MY WILL" THIS RN SAID, "YOU ARE CORRECT, ARE YOU AWARE IT IS MIDNIGHT, DO YOU HAVE SOMEONE YOU CAN CALL AT THIS TIME TO PICK YOU UP?" PATIENT, "OH, ITS MIDNIGHT, WELL I CAN WALK" THIS RN SAID OK, IF YOU STAND UP AND FEEL GOOD ABOUT LEAVING WE WILL HAVE THE SIGN THE LEAVING AMA FORM AND HELP YOU GATHER YOUR THINGS, YOU MIGHT WANT TO JUST STAY THE NIGHT?" PATIENT SAID, "WELL WE WILL SEE" , SAFETY AND HEALTH MANAGER, FLOAT NURSE AND SALOMÓN RN INTO ROOM WT THIS RN TO ASSIST PATINET TO STAND. PATIENT ABLE TO STAND, HE IS VERY WEEK, ABLE TO HOLD HIS OWN WEIGHT FOR 3MIN THEN SAT BACK DOWN, STOOD ONCE MORE, THEN HE SAID, "I AM JUST GOING TO HAVE TO STAY THE NIGHT", PATIENT ASSISTED BACK TO BED AND PLACED BACK ON MONITOR. DISCUSSED PLAN OF CARE WITH PATIENT TO FURHTER CARES THAT WE WILL PROVIDE IF HE STAYS SUCH PHYSICAL THERAPY TOMORROW, LABS IN AM TO CHECK ELECTROLYTES AND REPLACE NEEDED. HE NODDED HIS HEAD IF SATISFIED WITH THIS PLAN FOR NOW. CALLED WHEN PATIENT REPORTED HE PLANNED TO LEAVE AMA, SAID IF HE WANTS TO GO LET HIM GO AMA.
--- NOTE | 2023-10-03 00:36 | NUR ---
CALLED TO REPORT THAT THE PATIENT HAS DECIDED TO STAY THE NIGHT. FOR NOW
--- NOTE | 2023-10-03 01:56 | NUR ---
PATIENT PULLED OFF CONDOM CATH, FULL BED CHANGE, THEN PATIENT WANTED TO TRY TO GET UP TO GO INTO THE BATHROOM TO VOID. ONE RN CONTACT ASSIST [facility] AND ONE RN TO ASSIST IF NEEDED (WAS NOT NEEDED), HE COOPERATED AND FOLLOWED DIRECTION WELL. PATIENT BACK TO BED.
--- NOTE | 2023-10-03 02:25 | NUR ---
PRECEDEX DRIP OFF AT THIS TIME.
--- NOTE | 2023-10-03 03:53 | NUR ---
PATIENT UP TO BATHROOM WITH FWW AND CONTACT ASSIST. PATIENT HAS GOOD STRENGTH, GAIT IS UNSTEADY.
[2023-10-03 05:34] LABS: BASOPHILS 0.8 % (0-2); EOSINOPHILS 1.8 % (0-6); HEMOGLOBIN 12.3 g/dL (12.0-18.0); LYMPHOCYTES 23.7 % (24-44); MCH 37.4 (27-36); MCHC 35.2 g/dl (30-36); MCV 106.3 fl (81-99); MONOCYTES 7.5 % (0-12); NEUTROPHILS 66.2 % (39-80); PLATELET COUNT 89 K/uL (140-440); RDW 13.1 (10.5-15.0)
[2023-10-03 05:49] LABS: ALBUMIN 2.7 g/dL (3.4-5.0); ALBUMIN/GLOBULIN RATIO 0.87 (1.1-2.4); ANION GAP 12.1 (7-21); BILIRUBIN, TOTAL 1.5 ng/dL (0.2-1.0); BUN/CREATININE RATIO 8.04 (6.0-28.6); CALCIUM 7.6 mg/dL (8.5-10.1); CREATININE, SERUM 0.87 mg/dL (0.70-1.30); POTASSIUM 4.1 mmol/L (3.5-5.1); PROTEIN, TOTAL 5.8 g/dL (6.4-8.2)
--- NOTE | 2023-10-03 06:38 | NUR ---
Pt trying to get out of bed, helped to BRp using 1PA/FWW, weak unsteady gait, voided, back to bed, bed alrm on.Tolerated fair.
[2023-10-03] MEDS ORDERED: MAGNESIUM SULFATE 4 GM/100 ML BAG IV ONE (07:00)
--- NOTE | 2023-10-03 08:03 | NUR ---
UR CLINICAL REVIEW: [place] [facility] [place] @ 1707 ORDER MATCHES REG NO PA REQUIRED FOR OBS STAY. SUBMITTED TO PA REVIEW TO DETERMINE CORRECT STATUS AND NEED FOR FURTHER AUTH. PATIENT LEFT AMA 10/03/23 @ 0007.
--- NOTE | 2023-10-03 08:40 | NUR ---
PT MORNING ASSESSMENT COMPLETE. PT COMPLAINS OF NO PAIN. PT IS SITTING UP IN BED WATCHING TV. PT IS A/O X4, ANSWERS QUESTIONS APPROPRIATLY. PT LUNGS ARE CLEAR IN THE UPPER LOBES BUT DIM IN THE LOWER LOBES. PT UPDATED ON THE PLAN OF CARE FOR THE DAY. NO NEEDS AT THIS TIME. CALL LIGHT WITHIN REACH.
--- NOTE | 2023-10-03 08:50 | NUR ---
PT REQUESTING TO USE BATHROOM. PT UP WITH X2 SBA WITH WALKER. PT GAIT IS UNSTEADY. HEART RATE UP TO 150, DENIES ANY SHORTNESS OF BREATH, LIGHT HEADNESS OR DIZZINESS. PT VOIDED 400ML OF YELLOW URINE. PT ASSISTED BACK TO BED. CALL LIGHT WITHIN REACH. NO FURTHER NEEDS AT THIS TIME.
[2023-10-03] MEDS ORDERED: MAGNESIUM SULFATE 100 ML IV ONE (10:36)
[2023-10-03] MEDS ORDERED: METOPROLOL SUCCINATE 100 MG TABCR PO SCH (10:45)
--- NOTE | 2023-10-03 10:45 | NUR ---
PHYSICAL THERAPY INTO WORK WITH PT
--- NOTE | 2023-10-03 11:15 | NUR ---
REPORT GIVEN TO MED-SURG NURSE, PT MOVED OUT OF UNIT VIA BED TO FLOOR.
--- NOTE | 2023-10-03 11:15 | NUR ---
BEDSIDE REPORT RECEIVED FROM NEDA CHANG. PATIENT VERBALIZES UNDERSTANDING OF MOVING TO A NEW UNIT.
--- NOTE | 2023-10-03 11:49 | NUR ---
PATIENT MOVED TO ROOM 120. ORIENTED TO ROOM AND CALL LIGHT FUNCTIONS. AOX4. DENIES PAIN. CIWA ASSESSMENT COMPLETED CHARTED. IV INFUSING WITHOUT DIFFICULTY. CALL LIGHT IN REACH, BED IN LOW/LOCKED POSITION WITH BED ALARM ON.PATIENT CALLED FRIEND TO UPDATE ON LOCATION. DENIES NEEDS AT THIS TIME.
--- NOTE | 2023-10-03 11:59 | NUR ---
SITTING UP IN BED, WATCHING TV. DISCUSSED NELDA. PATIENT CONTINUES TO STATE HE WOULD RATHER WAIT TO SPEAK WITH THEM WHEN HE IS DISCHARGED FROM HOSPITAL STATING "I'VE HAD ENOUGH." STATES HE CAN NOT CURRENTLY THINK OF NEEDS HE MAY HAVE AT HOME AT THIS TIME. INFORMED HIM STAFF WILL CHECK IN WITH HIM AGAIN TOMORROW. VERBALIZES UNDERSTANDING.
--- NOTE | 2023-10-03 13:49 | NUR ---
PATIENT SET OFF BED ALARM, THIS CLINICAL EDUCATION COORDINATOR IN TO ASSIST PATIENT. PATIENT USED URINAL AT EDGE OF BED. NEW CHUCKS ON BED AT THIS TIME. PATIENT NOW LAYING DOWN IN BED. CALL LIGHT IN REACH. BED ALARM ON. NO FURTHER NEEDS AT THIS TIME.
--- NOTE | 2023-10-03 14:46 | NUR ---
PATIENT RESTING IN BED WITH VISITOR AT BEDSIDE. CIWA SCORED AT 2. PATIENT IS IMPULSIVE WHEN NEEDING TO VOID. BED LOW/LOCKED AND ALARM ON. CALL LIGHT IN REACH.
--- NOTE | 2023-10-03 15:30 | NUR ---
PATIENT REQUESTS TO AMBULATE TO TOILET TO ATTEMPT TO HAVE A BM. FWW AND GAIT BELT, PATIENT IS TREMULOUS WHEN WALKING BUT RESOLVES WHEN RETURNED TO BED. NO BM NOTED, HOWEVER PATIENT VOIDED. PATIENT REPORTS HE ONLY PASSED FLATUS. DENIES PAIN OR NEEDS AT THIS TIME. SINUS RHYTHM IN THE 90S ON TELEMETRY. CALL LIGHT IN REACH, BED LOW/LOCKED AND BED ALARM ON.
--- NOTE | 2023-10-03 17:04 | NUR ---
PATIENT UP TO BR TO VOID. 1 PERSON ASSIST W GAIT BELT AND FWW. REFUSES GOWN AT THIS TIME. UP TO CHAIR AFTER BR TO EAT EVENING MEAL. CHAIR ALARM ON AND CALL LIGHT IN REACH.
--- NOTE | 2023-10-03 18:15 | NUR ---
PATIENT AMBULATED BACK TO BED WTIH FWW, GAIT BELT AND ASSISTANCE. REMAINS IMPULSIVE BUT DIRECTABLE. WARM BLANKET PROVIDED. DENIES PAIN OR NEEDS. CALL LIGHT IN REACH, BED IN LOWEST POSITION, LOCKED AND BED ALARM ON.
--- NOTE | 2023-10-03 19:37 | NUR ---
REPORT RECEIVED FROM DAY SHIFT RN. PT LYING IN BED ALERT AND ORIENTED. DENIES NEEDS. WHITE BOARD UPDATED. CALL LIGHT IN REACH. BED ALARM FOR SAFETY.
--- NOTE | 2023-10-03 20:40 | NUR ---
EVENING ASSESSMENT COMPLETE. SCHEDULED MEDS ADMIN PER EMAR. IV ABX INFUSING PER ORDER. PT DENIES PAIN OR NAUSEA. SLIGHT TEMORS NOTED IN HANDS. CIWA 2. PT DENIES FURTHER NEEDS. CALL LIGHT IN REACH. BED ALARM FOR SAFETY.
--- NOTE | 2023-10-03 21:56 | NUR ---
PATIENTS BED ALARM ALERTED STAFF. THIS RN IN TO PATIENTS ROOM. PATIENT ASSISTED TO STAND AT THE BEDSIDE AND USE URINAL. PATIENT ABLE TO VOID. PATIENTS ATTEND CHANGED AND NARENDRA CARE COMPLETED. PATIENT IS NOW BACK IN BED RESTING. PATIENTS IV ABX COMPLETED INFUSING. PATIENT IS NOW SL PER ORDER. PATIENT DENIES ANY FURTHER NEEDS. CALL LIGHT AND BELONGINGS ARE WITHIN REACH. BED ALARM ON FOR PATIENT SAFETY.
--- NOTE | 2023-10-03 23:55 | NUR ---
ROUNDING ON PT. PT NOTED TO BE ATTEMPTING OOB WITHOUT ASSIST. IN TO ASSIST PT USE URINAL AT SIDE OF BED. BACK TO BED, SHOSHANA WELL. INCREASED SHAKINESS/TREMORS NOTED WITH ACTIVITY. BED ALARM FOR SAFETY. NO FURTHER NEEDS.
[2023-10-04] VITALS (7 sets, daily range): BP systolic 100–141; BP diastolic 68–99
--- NOTE | 2023-10-04 01:07 | NUR ---
BED ALARM SOUNDING. PT DISORIENTED. BELIEVES HE IS AT HOME AND WAS GOING TO TAKE A SHOWER. PT EASILY REDIRECTABLE AND REORIENTED. VS OBTAINED, WNL. SCHEDULED MEDS ADMIN PER EMAR. NO FURTHER NEEDS. BED ALARM IN PLACE. CALL LIGHT IN REACH.
--- NOTE | 2023-10-04 01:23 | NUR ---
BED ALARM SOUNDING. PT STATES "I CAN'T GET COMFORTABLE" ASSISTED TO REPOSITION. NO FURTHER NEEDS.
--- NOTE | 2023-10-04 02:18 | NUR ---
BED ALARM SOUNDING. PT UP TO SIDE OF BED TO VOID. BACK TO BED, SHOSHANA WELL. BED ALARM ON. NO FURTHER NEEDS.
--- NOTE | 2023-10-04 03:56 | NUR ---
BED ALARM SOUNDING. PT UP TO SIDE OF BED TO USE URINAL. BACK TO BED, SHOSHANA WELL. HR NOTED LOW 100'S WHEN OOB.
[2023-10-04] MEDS ORDERED: NICOTINE POLACRILEX 4 MG LOZENGE BUCCAL PRN (04:30)
--- NOTE | 2023-10-04 04:45 | NUR ---
PT SITTING ON SIDE OF BED. INCREASED ANXIETY, AGITATION, AND TREMORS NOTED. CIWA 9. PRN ADMIN PER EMAR. PRN NICOTINE ADMIN. VS AND I&O OBTAINED. NO FURTHER NEEDS. BED ALARM FOR SAFETY. CALL LIGHT IN REACH.
[2023-10-04 05:21] LABS: EOSINOPHILS 1.9 % (0-6); HEMATOCRIT 34.4 % (35.0-50.0); HEMOGLOBIN 12.2 g/dL (12.0-18.0); MCH 37.5 (27-36); MCHC 35.4 g/dl (30-36); MONOCYTES 8.6 % (0-12); NEUTROPHILS 65.5 % (39-80); PLATELET COUNT 126 K/uL (140-440); RBC 3.25 M/ul (4.3-5.7); RDW 12.8 (10.5-15.0)
[2023-10-04 05:29] LABS: ANION GAP 14.8 (7-21); BUN/CREATININE RATIO 7.86 (6.0-28.6); CALCIUM 8.1 mg/dL (8.5-10.1); CREATININE, SERUM 0.89 mg/dL (0.70-1.30); POTASSIUM 3.8 mmol/L (3.5-5.1)
[2023-10-04 05:36] LABS: MAGNESIUM 1.1 mg/dL (1.8-2.4)
[2023-10-04] MEDS ORDERED: MAGNESIUM SULFATE 2 GM/50 ML BAG IV ONE (06:30)
--- NOTE | 2023-10-04 06:44 | NUR ---
PATIENTS BED ALARM ALERTED STAFF. PATIENT ATTEMPTING TO GET OUT OF BED. THIS RN IN ROOM. THIS RN ATTEMPTED TO ASSIST PATIENT WITH STANDING. PATIENT REFUSED WALKER TO STAND. THIS RN EDUCATED PATIENT THAT HE IS UNSTEADY ON HIS FEET. PATIENT STATED "I DONT NEED THIS WALKER". THIS RN ATTEMPTED TO REORIENT PATIENT. PATIENT CONTINUES TO REPORT THAT HE IS AT HOME. PATIENT UP AND VOIDED IN URINAL. PATIENT IS BACK IN BED RESTING. PATIENT ATTEMPTING TO ANSWER PHONE AND DIAL OUT. PATIENT STATED "WHO CALLED ME". THIS RN EDUCATED PATIENT THAT HE IS AT [facility]. PATIENT VERABLIZED UNDERSTANDING. PATIENT IS IN BED RESTING. NO FURTHER NEEDS NOTED. CALL LIGHT IN REACH. BED ALARM ON FOR SAFETY.
--- NOTE | 2023-10-04 07:15 | NUR ---
Report received from NEDA Valente. Patient resting in bed with eyes closed, respirations even and unlabored. Call light in reach, bed low and locked with alarm on.
--- NOTE | 2023-10-04 08:10 | NUR ---
PATIENT SITTING UP ON SIDE OF BED. STOOD UP WITHOUT ASSISTANCE WHILE STAPLE SIDE LASTER IN ROOM. PATIENT BEGAN TO FALL, STAPLE SIDE LASTER ASSISTED PATIENT TO HIS KNEES. DENIES PAIN OR INJURY. ASSISTED BACK TO SIDE OF BED. SMALL ABRASION NOTED TO RIGHT KNEE. CLEANED AND COVERED WITH BANDAID.
[2023-10-04] MEDS ORDERED: METOPROLOL SUCCINATE 100 MG TABCR PO SCH (09:00)
--- NOTE | 2023-10-04 11:03 | NUR ---
PT ASSISTED BACK TO BED FROM CHAIR USING FWW AND 1PA. PT UNSTEADY ON FEET. BED ALARM ON, RAILS X3 AND FALL MAT IN PLACE. CALL LIGHT IN REACH. PT DENIES NEEDS AT THIS TIME.
--- NOTE | 2023-10-04 11:39 | NUR ---
PATIENT RESTING IN BED BUT WOKE AND ATTEMPTED TO GET UP ALONE, BED ALARM ACTIVATED. PATIENT WAS DIRECTABLE TO STAY SEATED. CIWA ASSESSMENT COMPLETED. INITIALLY DID NOT RECAL WHERE HE WAS BUT AFTER A MOMENT, HE RECALLED HE WAS IN THE HOSPITAL. ASSISTED WITH VOIDING IN URINAL.PATIENT DENIES PAIN. BACK TO BED. FALL MAT IN PLACE, BED IN LOWEST POSITION AND LOCKED, CALL LIGHT IN REACH AND BED ALARM ON.
--- NOTE | 2023-10-04 12:56 | NUR ---
PATIENT ASSISTED UP TO BATHROOM TO HAVE A BOWEL MOVEMENT. CIWA ASSESSED AND MEDICATED WITH ATIVAN PER JUN. BACK TO BED, BED ALARM ON AND CALL LIGHT IN REACH.
--- NOTE | 2023-10-04 13:10 | NUR ---
UR CONCURRENT REVIEW: [facility] [place] INPATIENT 10/03/23 @ 0914 PER PA REVIEW/VERBAL MD ORDER AUTH PENDING EOCCO REVIEW PATIENT ATTEMPTED TO AMA, UNABLE TO DO SO. ONGOING CASE MANAGEMENT ASSESSMENT FOR DISCHARGE DISPOSITION REQUIRED. 10/06/23
[2023-10-04] MEDS ORDERED: CHLORDIAZEPOXIDE 25 MG CAP PO SCH (15:00)
--- NOTE | 2023-10-04 15:00 | NUR ---
PATIENT REMAINS IMPULSIVE BUT DIRECTABLE. PATIENT INITIALLY REPORTED HE WANTED TO GO HOME BUT AFTER TALKING TO SOME FRIENDS ON THE PHONE, HE AGREES TO STAY AND VERBALIZED UNDERSTANDING THAT HE IS STILL WEAK. HE HAS BEEN UP AND DOWN BETWEEN THE CHAIR AND BED THROUGHTOUT THE DAY. FALL MAT REMAINS IN PLACE WITH EITHER CHAIR OR BED ALARM ON AT ALL TIMES.
--- NOTE | 2023-10-04 15:26 | NUR ---
VISITED DURING SPIRITUAL CARE ROUNDS. LISTENED EMPATHETICALLY PT TALKED OF PROCEDURE AND PRECEDING EVENTS. NORMALIZED PT EXPERIENCE, PROVIDED HOSPITALITY, SUPPORTIVE PRESENCE, PRAYER. PT EXPRESSED GRATITUDE.
--- NOTE | 2023-10-04 16:16 | NUR ---
PATIENT RESTING IN BED WITH FRIEND AT BEDSIDE. PATIENT'S FRIEND, ZAMZAM TAKING HOME HIS SOILED JEANS, SOCKS, TOWEL, SHIRT AND BELT. SHE BROUGHT IN CLEAN JEANS, T SHIRT, BOXERS, SOCKS, GLASSES AND HIS WALLET. PATIENT DENIES NEEDS AT THIS TIME. BED ALARM ON.
--- NOTE | 2023-10-04 16:45 | NUR ---
PATIENT UP TO CHAIR. CONTINUES TO REMAIN IMPULSIVE AND QUICK TO GET UP, FORGETS LIMITATIONS. CHAIR ALARM ON. FALL MAT IN PLACE. CALL LIGHT IN REACH. CIWA SCORE CHARTED. REMAINS ON TELEMETRY SR IN THE 80S.
--- NOTE | 2023-10-04 17:39 | NUR ---
PATIENT HAD AN ASSISTED FALL IN THE BEGINNING OF THE SHIFT, ASSISTED TO HIS KNEES. PATIENT REMAINS IMPULSIVE. CIWA SCORES RANGING FROM 2-6. MEDICATED WITH ATIVAN X1 DURING THE SHIFT. FALL MAT REMAINS IN PLACE, CHAIR OR BED ALARM IN CONSTANT USE. RE-EDUCATION AND REINFORCEMENT CONCRETE CARPENTER LIGHT USE AND WAITING FOR ASSISTANCE PROVIDED THROUGHOUT THE DAY. IV ABX TRANSITIONED TO PO. VSS, SR ON TELEMETRY. PATIENT CONTINUOUS TO BE WEAK AND TREMULOUS WHEN AMBULATING. PATIENT'S FRIEND BROUGHT IN GLASSES.
--- NOTE | 2023-10-04 18:22 | NUR ---
PATIENT BACK TO BED. CIWA CHARTED. DENIES PAIN OR NEEDS. BED IN LOWEST POSITION AND LOCKED, BED ALARM ON, CALL LIGHT IN REACH AND FALL YOLANDA REMAINS IN PLACE. PERSONAL ITEMS IN REACH.
--- NOTE | 2023-10-04 19:44 | NUR ---
REPORT RECEIVED FROM DAY SHIFT RN. PT LYING IN BED ALERT AND ORIENTED. DENIES NEEDS. WHITE BOARD UPDATED. CALL LIGHT IN REACH. BED ALARM FOR SAFETY.
--- NOTE | 2023-10-04 20:05 | NUR ---
PATIENTS BED ALARM ALERTED STAFF. PATIENT ASSISTED TO STAND AT THE BEDSIDE. PATIENT IS A 1PA W/FWW. PATIENT ABLE TO VOID IN URINAL. PATIENT IS BACK IN BED RESTING. PATIENTS VITALS TAKEN AND RECORDED. INTAKE AND OUTPUT RECORDED. PATIENT IS ABLE TO RECALL EVENTS BUT REMAINS CONFUSED TO THE TIMELINE FOR EVENTS THAT TOOK PLACE. PATIENTS BED ALARM IS ON FOR SAFETY. FALL MAT ON FLOOR. PATIENTS CURTAIN IS OPEN AND IS IN VIEW OF RN STATION. CALL LIGHT AND BELONGINGS ARE WITHIN REACH.
--- NOTE | 2023-10-04 20:13 | NUR ---
EVENING ASSESSMENT COMPLETE. SCHEDULED MEDS ADMIN PER EMAR. PT DENIES PAIN OR NAUSEA. CIWA 2. TELE #[address] SR. HR 80'S. VS AND I&O OBTAINED. PT DENIES QUESTIONS OR CONCERS. CALL LIGHT IN REACH. BED ALARM FOR SAFETY.
[2023-10-04] MEDS ORDERED: CIPROFLOXACIN 500 MG TAB PO SCH (21:00)
--- NOTE | 2023-10-04 21:41 | NUR ---
UPDATED MD ON PATIENTS AGITATION WITH TELE. THIS RN REQUESTED TELE BE DC'D. MD REPORTS CONCERN OF LOW MAGNESIUM AND REPLCAMENT FROM DAY SHIFT. MD PLACED ORDER TO REPEAT MAG LAB. THIS RN PLACED CALL TO LAB.
--- NOTE | 2023-10-04 21:50 | NUR ---
LAB ATTEMPTED TO ENTER ROOM. PATIENT UP OUT BED TO BR. PATIENT ASSISTED TO THE BR A 1PA W/FWW. PATIENT EXPRESSES FRUSTARION WITH USING WALKER. PATIENT EDUCATED THAT HE IS UNSTEADY ON HIS FEET. PATIENT INTO BR AND ABLE TO VOID. PATIENT VOIDED ON PANTS AND FLOOR IN BATHROOM. PATIENTS SOCKS AND PANTS CHANGED. PATIENT IS ABCK IN BED RESTING. PRIMARY RN REMAINS AT BEDSIDE.
--- NOTE | 2023-10-04 22:10 | NUR ---
LAB COMPLETED BLOOD DRAW. PATIENT CAN BE SEEN FROM RN STATION ATTEMPTING TO GET OUT OF BED THIS RN INTO PATIENTS ROOM. PATIENT STATED "I AM OUT OF HERE". PATIENT EDUCATED THAT IT IS NOT SAFE FOR HIM TO LEAVE THE HOSPITAL AT THIS TIME. PATIENT EDUCATED THAT IF HE LEAVES IT WILL BE AGAINST MEDICAL ADVICE. PATIENT STATED "I DONT GIVE A FUCK, I AM CALLING [facility]". THIS RN ATTEMPTED TO REDIRECT PATIENT. PATIENT EDUCATED THAT HE JUST HAD HIS BLOOD DRAWN AND IT IS IMPORTANT TO WAIT FOR THE RESULT. PATIENT STATED "I GUESS I COULD DO THAT AFTER I GO SMOKE". PATIENT EDUCATED THIS IS A NON SMOKING FACILITY. PATIENT OFFERED PRN LOZENGE. PATIENT ACCEPTS. PATIENT GIVEN PRN LOZENGE PER ORDER. PATIENT REQUESTS LIGHT BE TURNED OFF. PATIENTS LIGHTS TURNED OFF AND BED ALARM PLACED ON FOR PATIENT SAFETY. CALL LIGHT IN REACH. PATIENT IN VIEW OF RN STATION.
[2023-10-04] MEDS ORDERED: MAGNESIUM SULFATE 4 GM/100 ML BAG IV ONE (22:30)
--- NOTE | 2023-10-04 22:40 | NUR ---
PT RESTING IN BED WATCHING TV. MAG INFUSING PER ORDER. FRESH WATER PROVIDED. NO FURTHER NEEDS.
--- NOTE | 2023-10-05 00:04 | NUR ---
PT REPORTS SLIGHT "ACHE" WITH MAG INFUSION. IV SITE FLUSHED AND PATENT. WARM COMPRESS PROVIDED FOR RIGHT FOREARM. PT REPORTS DISCOMFORT IMPROVED. ASSISTED TO USE URINAL IN BED TO VOID 325 ML CLEAR YELLOW URINE. NO FURTHER NEEDS.
--- NOTE | 2023-10-05 00:44 | NUR ---
IV MAG COMPLETE. ASSISTED PT TO USE URINAL. NO FURTHER NEEDS. BED ALARM FOR SAFETY. CALL LIGHT IN REACH.
[2023-10-05 01:24] VITALS: BP 110/79
--- NOTE | 2023-10-05 02:06 | NUR ---
BED ALARM SOUNDING. PT UP TO SIDE OF BED TO VOID WITH 1PA AND FWW. BACK TO BED, SHOSHANA WELL. GAIT UNSTEADY. INCREASED TREMORS NOTED WITH ACTIVITY. PT DENIES PAIN OR NAUSEA. CIWA 2. NO FURTHER NEEDS. FALL MAT IN PLACE. BED ALARM FOR SAFETY.
--- NOTE | 2023-10-05 03:03 | NUR ---
BED ALARM SOUNDING. IN TO ASSIST PT REPOSITION IN BED. WARM BLANKET PROVIDED. FALL MAT IN PLACE. BED ALARM FOR SAFETY.
--- NOTE | 2023-10-05 04:28 | NUR ---
BED ALARM SOUNDING. PT UP TO SIDE OF BED WITH FWW AND SBA TO VOID. BACK TO BED WITH ALARM IN PLACE. ALARM SOUNDING AGAIN. PT WANTING TO GET HIS BAG SO HE CAN "SMOKE A CIGARETTE." REORIENTATION PROVIDED. PT RECEPTIVE. PRN NICOTINE ADMIN PER EMAR. NO FURTHER NEEDS. CALL LIGHT IN REACH. BED ALARM IN PLACE.
[2023-10-05 05:16] VITALS: BP 129/98
[2023-10-05 05:29] LABS: BASOPHILS 0.9 % (0-2); EOSINOPHILS 2.2 % (0-6); HEMATOCRIT 36.3 % (35.0-50.0); HEMOGLOBIN 12.7 g/dL (12.0-18.0); LYMPHOCYTES 23.7 % (24-44); MCH 37.8 (27-36); MCHC 35.1 g/dl (30-36); MCV 107.8 fl (81-99); MONOCYTES 13.8 % (0-12); NEUTROPHILS 59.4 % (39-80); PLATELET COUNT 130 K/uL (140-440); RBC 3.37 M/ul (4.3-5.7); RDW 12.7 (10.5-15.0)
--- NOTE | 2023-10-05 05:34 | NUR ---
LAB IN ROOM FOR MORNING DRAW. VS AND I&O OBTAINED. ASSISTED PT TO REPOSITION. NO FURTHER NEEDS.
[2023-10-05 05:42] LABS: ALBUMIN 3.1 g/dL (3.4-5.0); ALBUMIN/GLOBULIN RATIO 0.97 (1.1-2.4); ANION GAP 11.4 (7-21); BILIRUBIN, TOTAL 1.2 ng/dL (0.2-1.0); BUN/CREATININE RATIO 8.97 (6.0-28.6); CALCIUM 8.4 mg/dL (8.5-10.1); CREATININE, SERUM 0.78 mg/dL (0.70-1.30); POTASSIUM 3.4 mmol/L (3.5-5.1); PROTEIN, TOTAL 6.3 g/dL (6.4-8.2)
--- NOTE | 2023-10-05 06:34 | NUR ---
PT ATTEMPTING TO GET OUT OF BED WITHOUT ASSISTANCE. STATES "I NEED TO GO TURN ON THE PELLET STOVE" PT WAKES WITH INCREASED CONFUSION. REORIENTATION PROVIDED. PT EASILY REDIRECTABLE. DISCUSSED PLAN OF CARE. PT RECEPTIVE. DENIES NEEDS. BED ALARM FOR SAFETY. FALL MAT IN PLACE. PT IN VIEW OF NURSES STATION.
--- NOTE | 2023-10-05 07:23 | NUR ---
REPORT RECIEVED FROM NEDA BAUGH. PT RESTING IN BED ON RIGHT SIDE. BLANKET OVER PTs FACE. RR EVEN AND UNLBAORED. CHEST RISE NOTED. NO NEEDS IDENTIFIED OR REPORTED. CALL LIGHT IN REACH. BED ALARM ON.
--- NOTE | 2023-10-05 07:57 | NUR ---
PT SITTING UP IN CHAIR WITH CHAIR ALARM IN PLACE. VERY QUICK/IMPULSIVE. REMOTE TELEMETRY DISCONTINUED AT THIS TIME PER MD INSTRUCTIONS. CALL LIGHT WITHIN REACH AT THIS TIME.
--- NOTE | 2023-10-05 07:58 | NUR ---
PATIENT SET OFF BED ALARM, THIS GLASS INSTALLER TECHNICIAN IN TO ASSIST PATIENT. PATIENT USED URINAL AT EDGE OF BED. THEN TO CHAIR 1PA FWW. CHAIR ALARM ON. FALL MATS ON FLOOR. CALL LIGHT IN REACH. NO FURTHER NEEDS AT THIS TIME.
[2023-10-05] MEDS ORDERED: POTASSIUM CHLORIDE 10 MEQ TABCR PO ONE (08:00)
--- NOTE | 2023-10-05 08:45 | NUR ---
IN TO ADMINISTER MEDICATIONS, SEE DENIS. DR. LY IN ROOM. PT TAKES PO MEDICAITONS WITH NO ISSUES. PT DENIES ANY PAIN AT THIS TIME. ASSESSMENT COMPLETE. LUNG SOUNDS CLEAR IN RUL, SANKET AND RLL. CRACKLES IN LLL. HEART TONES TACHYCARDIC. PT DENIES NUMBNESS OR TINGLING IN HANDS OR FEET. PT DENIES ANY NAUSEA. CIWA OF 7 NOTED. THIS RN INFORMED PT "RIPPED OUT IV SITE" PRIOR TO THIS RN ENTERING ROOM. NICOTINE PATCH REMOVED FROM PTs RIGHT SHOULDER. PT REFUSES NEW NICOTINE PATCH AND STATES "I HAVE CIGGARRETTS." PT REFUSES LIBRIUM MEDICATION. PT DRESSESS SELF. VITALS COMPLETE. PT REPORTING "FRIEND IS COMING TO PICK ME UP." BELONGINGS RETURNED.
[2023-10-05 08:50] VITALS: BP 118/91
[2023-10-05] MEDS ORDERED: CIPROFLOXACIN500 MG PO (08:58)
--- NOTE | 2023-10-05 09:00 | NUR ---
PRIMARY RN BUSY AT THIS TIME, PT WANTING TO LEAVE AT THIS TIME. REQUESTING DISCHARGE PAPERWORK, REVIEWED DISCHARGE PAPERS WITH PATIENT, ADVISED TO FOLLOW-UP SCHEDULED WITH PCP AND TO MAKE SURE HE PICKS UP ANTIBIOTIC AT THE PHARMACY. PT HAD A RIDE COMING AND REALLY WANTED TO GET OUT OF THE HOSPITAL. ASSISTED OUT IN WHEELCHAIR BY CLINICAL RESEARCH TECHNICIAN TODD.
--- NOTE | 2023-10-05 11:00 | NUR ---
Attempted to see this pt, he demanded dc earlier and left. I spoke with Dr. Abreu and pt denies needs.
== END 2023-10-05 09:00 | disposition home or self-care (01) | DRG 315 ==
LOC: ED 17:06 → CCU 17:07 → ED 19:43 → MS 19:43 → CCU 20:39 → MS 10-01 13:50 → CCU 10-01 13:50 → MS 10-01 13:50 → CCU 10-01 13:51 → MS 10-03 11:20
PROVIDERS: Emergency Medicine; ADMIT Internal Medicine; ATTEND Internal Medicine
DX: I95.9 Hypotension, unspecified (principal); E87.20 Acidosis, unspecified; F10.129 Alcohol abuse with intoxication, unspecified; E87.6 Hypokalemia; R74.02 Elevation of levels of lactic acid dehydrogenase [LDH]; D75.89 Other specified diseases of blood and blood-forming organs; I10 Essential (primary) hypertension; F17.210 Nicotine dependence, cigarettes, uncomplicated; L08.9 Local infection of the skin and subcutaneous tissue, unspecified; I25.2 Old myocardial infarction; Z98.890 Other specified postprocedural states; Z88.0 Allergy status to penicillin; Z88.8 Allergy status to other drugs, medicaments and biological substances
CPT/HCPCS: 36415; 36592; 51798; 71045; 80048; 80053; 80307; 81003; 82553; 82803; 83605; 83735; 84100; 84484; 85025; 87040; 93005; 93010; 93306; 94760; 96361; 96365; 96366; 96367; 96368; 96375; 96376; 97162; 97166; 97530; 99285-25; A9270; G0378; G0480; J0612; J0744; J1200; J2060; J2405; J3411; J3475; J3480; J3490; J7030; J7040; J7060; J7121

== ENCOUNTER 2023-10-14 22:28 | Emergency (ER) | payer OTHER ==
[~2023-10-14] VITALS: Ht 182.9 cm; Wt 78.2 kg
[~2023-10-14 22:28] MED LIST changes: +CIPROFLOXACIN500 MG PO; +FLOMAX0.4 MG PO; +METOPROLOL SUC100 MG PO; +METOPROLOL SUCC50 MG PO; +NORVASC10 MG PO; +ZESTRIL40 MG PO
[2023-10-14] MEDS ORDERED: MULTIVITAMINS 10 ML,FOLIC ACID 1 MG,THIAMINE HCL 100 MG in SODIUM CHLORIDE 0.9% 1,000 ML IV ONE (23:30)
[2023-10-14 23:42] LABS: BILIRUBIN, URINE NEGATIVE (negative); BLOOD/HGB, URINE NEGATIVE (Negative); KETONE, URINE NEGATIVE (Negative); LEUK ESTERASE, URINE NEGATIVE (negative); NITRITE, URINE NEGATIVE (negative); PH, URINE 5.5 (5-7)
[2023-10-14 23:57] LABS: AMPHETAMINES, URINE NEGATIVE (NEGATIVE); BARBITURATES, URINE NEGATIVE (NEGATIVE); BENZODIAZEPINE, URINE POSITIVE (NEGATIVE); BUPRENORPHINE, URINE NEGATIVE (NEGATIVE); CANNABINOID, URINE NEGATIVE (NEGATIVE); COCAINE, URINE NEGATIVE (NEGATIVE); ECSTASY, URINE NEGATIVE (NEGATIVE); FENTANYL, URINE NEGATIVE (NEGATIVE); METHADONE, URINE NEGATIVE (NEGATIVE); OPIATES, URINE NEGATIVE (NEGATIVE); OXYCODONE, URINE NEGATIVE (NEGATIVE); PHENCYCLIDINE, URINE NEGATIVE (NEGATIVE)
[2023-10-15 00:42] LABS: BASOPHILS 0.5 % (0-2); EOSINOPHILS 1.3 % (0-6); HEMOGLOBIN 13.3 g/dL (12.0-18.0); LYMPHOCYTES 38.9 % (24-44); MCH 37.3 (27-36); MCHC 34.9 g/dl (30-36); MCV 106.8 fl (81-99); MONOCYTES 6.9 % (0-12); NEUTROPHILS 52.4 % (39-80); PLATELET COUNT 430 K/uL (140-440); RBC 3.56 M/ul (4.3-5.7); RDW 13.2 (10.5-15.0)
[2023-10-15] MEDS ORDERED: FOLIC ACID 1 MG/0.2 ML ML ONE (01:00)
[2023-10-15 01:07] LABS: ACETAMINOPHEN 0 ug/mL (10-30); ALBUMIN 3.6 g/dL (3.4-5.0); ALBUMIN/GLOBULIN RATIO 1.06 (1.1-2.4); ALKALINE PHOSPHATASE 127 U/L (46-116); ALT (SGPT) 112 U/L (14-59); AST (SGOT) 125 U/L (15-37); BILIRUBIN, TOTAL 0.7 ng/dL (0.2-1.0); BUN/CREATININE RATIO 9.41 (6.0-28.6); CALCIUM 8.2 mg/dL (8.5-10.1); CARBON DIOXIDE 26 mmol/L (21-32); CHLORIDE 106 mmol/L (98-107); CREATININE, SERUM 0.85 mg/dL (0.70-1.30); GLOMERULAR FILTRATION RATE,EST 105 mL/min (>60); SALICYLATE 1.8 mg/dL (2.8-20.0); TSH, 3RD GENERATION 1.895 uIU/mL (0.358-3.740); UREA NITROGEN 8 mg/dL (7-18)
[2023-10-15 01:08] LABS: ALCOHOL, MEDICAL 350 ng/dL (<3)
[2023-10-15 03:00] VITALS: BP 133/91
== END 2023-10-15 03:00 | disposition home or self-care (01) ==
LOC: ED 22:28
PROVIDERS: Internal Medicine
DX: F10.129 Alcohol abuse with intoxication, unspecified (principal); I10 Essential (primary) hypertension; I25.2 Old myocardial infarction; F17.200 Nicotine dependence, unspecified, uncomplicated; Z88.0 Allergy status to penicillin; Z88.1 Allergy status to other antibiotic agents; Z79.899 Other long term (current) drug therapy
CPT/HCPCS: 36415; 80053; 80307; 81003; 84443; 85025; 96365; 99284-25; G0480; J3411; J7030

== ENCOUNTER 2023-10-25 06:41 | Emergency (ER) | payer OTHER ==
[~2023-10-25] VITALS: Ht 182.9 cm; Wt 80.0 kg
--- OUTSIDE RECORDS SUMMARY | 2023-10-25 06:43 | XMS ---
PreManage Notification: AILYN MIRANDA Security Rn Operating Room Events No recent Security Events currently on file CRITERIA MET - [facility] - 2 Visits in 30 Days CARE PROVIDERS -, [facility] Dentist: Advertising Vice President [facility] PHONE: [phone] -[facility]- Dentist: Advertising Vice President [facility] PHONE: [phone] [facility] Current PHONE: Unknown Edilberto has no Care Guidelines for this patient. Nelda VISIT COUNT (12 MO.) 3 [facility] TOTAL 3 NOTE: Visits indicate total known visits. ED/UCC VISIT TRACKING (12 MO.) 10/25/2023 06:42 [facility] TYPE: Emergency COMPLAINT: - ABDOMINAL PAIN 10/14/2023 22:29 [facility] TYPE: Emergency COMPLAINT: - INTOXICATED DIAGNOSES: - Alcohol abuse with intoxication, unspecified - Allergy status to other antibiotic agents - Allergy status to penicillin - Dizziness and giddiness - Essential (primary) hypertension - Nicotine dependence, unspecified, uncomplicated - Old myocardial infarction - Other snf (current) drug therapy 04/09/2023 14:03 [facility] [place] TYPE: Emergency COMPLAINT: - ALTERED LOC DIAGNOSES: - Abnormal electrocardiogram [ECG] [EKG] - Alcohol abuse with intoxication, unspecified - Allergy status to other antibiotic agents - Allergy status to penicillin - Essential (primary) hypertension - Nicotine dependence, unspecified, uncomplicated - Other snf (current) drug therapy INPATIENT VISIT TRACKING (12 MO.) 10/01/2023 13:50 [facility] TYPE: Medical Surgical COMPLAINT: - HYPOTENSIVE DIAGNOSES: - Acidosis, unspecified - Acidosis, unspecified - Alcohol abuse with intoxication, unspecified - Alcohol abuse with intoxication, unspecified - Allergy status to other drugs, medicaments and biological substances - Allergy status to other drugs, medicaments and biological substances - Allergy status to penicillin - Allergy status to penicillin - Elevation of levels of lactic acid dehydrogenase [LDH] - Elevation of levels of lactic acid dehydrogenase [LDH] - Essential (primary) hypertension - Essential (primary) hypertension - Hypokalemia - Hypokalemia - Hypotension, unspecified - Local infection of the skin and subcutaneous tissue, unspecified - Local infection of the skin and subcutaneous tissue, unspecified - Nicotine dependence, cigarettes, uncomplicated - Nicotine dependence, cigarettes, uncomplicated - Old myocardial infarction - Old myocardial infarction - Other specified diseases of blood and blood-forming organs - Other specified diseases of blood and blood-forming organs - Other specified postprocedural states - Other specified postprocedural states [email or web address]
[2023-10-25 06:56] LABS: BASOPHILS 1.1 % (0-2); EOSINOPHILS 1.3 % (0-6); HEMATOCRIT 37.9 % (35.0-50.0); HEMOGLOBIN 13.2 g/dL (12.0-18.0); LYMPHOCYTES 47.3 % (24-44); MCH 36.9 (27-36); MCHC 34.7 g/dl (30-36); MCV 106.3 fl (81-99); MONOCYTES 6.9 % (0-12); NEUTROPHILS 43.4 % (39-80); PLATELET COUNT 126 K/uL (140-440); RBC 3.57 M/ul (4.3-5.7); RDW 13.3 (10.5-15.0)
[2023-10-25] MEDS ORDERED: SODIUM CHLORIDE 0.9% 1,000 ML IV ONE ×2 (07:00→08:45)
[2023-10-25] MEDS ORDERED: ondansetron HCL 4 MG/2 ML VIAL IV ONE (07:00)
[2023-10-25 07:13] LABS: ALBUMIN 3.4 g/dL (3.4-5.0); ALBUMIN/GLOBULIN RATIO 0.97 (1.1-2.4); ANION GAP 15.3 (7-21); CALCIUM 8.3 mg/dL (8.5-10.1); CREATININE, SERUM 0.8 mg/dL (0.70-1.30); POTASSIUM 3.3 mmol/L (3.5-5.1); PROTEIN, TOTAL 6.9 g/dL (6.4-8.2)
[2023-10-25] MEDS ORDERED: MORPHINE SULFATE 4 MG/ML VIAL IV ONE (08:00)
[2023-10-25 08:27] LABS: BILIRUBIN, URINE NEGATIVE (negative); BLOOD/HGB, URINE NEGATIVE (Negative); KETONE, URINE TRACE (Negative); LEUK ESTERASE, URINE NEGATIVE (negative); NITRITE, URINE NEGATIVE (negative); PH, URINE 6.5 (5-7)
[2023-10-25 10:45] VITALS: BP 107/72
== END 2023-10-25 10:45 | disposition home or self-care (01) ==
LOC: ED 06:41
PROVIDERS: Family Medicine
DX: R10.32 Left lower quadrant pain (principal); I10 Essential (primary) hypertension; I25.2 Old myocardial infarction; F17.200 Nicotine dependence, unspecified, uncomplicated; Z88.0 Allergy status to penicillin; Z88.8 Allergy status to other drugs, medicaments and biological substances
CPT/HCPCS: 36415; 74177; 80053; 81003; 83690; 85025; 99284-25; G0480; J2405; J7030; Q9967